=== PATIENT | female | born 1965 | race Asian ===

== ENCOUNTER 2021-02-01 10:08 | Emergency (ER) | payer MEDICAID, OTHER ==
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
--- NOTE | 2021-02-01 12:21 | XRAY Report ---
PROCEDURE: Chest 1 View X-Ray INDICATIONS: Chest pain TECHNIQUE: One view of the chest was acquired. COMPARISON: None FINDINGS: Surgical changes and devices: None. Lungs and pleura: No pleural effusions or pneumothorax. Linear streaky atelectasis in the left lower lobe. No focal consolidation. Mediastinum: Mediastinal contours appear normal. Heart size is normal. Bones and chest wall: No suspicious bony lesions. Overlying soft tissues appear unremarkable. IMPRESSION: No acute cardiopulmonary process demonstrated radiographically. Reviewed by: Pelon Meneses MD on 02/01/2021 12:19 PM PDT Approved by: Pelon Meneses MD on 02/01/2021 12:19 PM PDT Station ID: [id number]
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
--- NOTE | 2021-02-01 12:39 | CT Report ---
PROCEDURE: HEAD WO INDICATIONS: Trauma, worsening headache TECHNIQUE: Noncontrast 4.5 mm thick angled axial sections acquired from the foramen magnum to the vertex. For r adiation dose reduction, the following was used: automated exposure control, adjustment of mA and/or kV according to patient size. COMPARISON: None. FINDINGS: Image quality: Excellent. CSF spaces: Basal cisterns are patent. No extra-axial fluid collections. Ventricles are normal in size and shape. Brain: Suspected small intraparenchymal hemorrhage in the anterior right frontal lobe with adjacent v asogenic edema. There is also likely a small adjacent subarachnoid component. No significant mass eff ect or midline shift. No additional intracranial hemorrhage identified. Skull and face: Calvarium and visualized facial bones are intact, without suspicious lesions. Sinuses: Visualized sinuses and mastoids are clear. IMPRESSION: Suspected small right frontal intraparenchymal hemorrhage with mild adjacent vasogenic edema. Appeara nce is not entirely consistent with intracranial hemorrhage although in the setting of trauma this is most likely. Due to the somewhat atypical appearance, follow up should be obtained to document resol ution, versus an MRI with contrast to further assess. Findings were discussed with Dr. Nelson at 12:2 9 PM on 02/01/2021. Reviewed by: Pelon Meneses MD on 02/01/2021 12:38 PM PDT Approved by: Pelon Meneses MD on 02/01/2021 12:38 PM PDT Station ID: [id number]
[2021-02-01 15:07] LABS: CREATININE 0.6 mg/dL (0.4-1.0); POTASSIUM 4.2 mmol/L (3.5-5.0)
--- NOTE | 2021-02-01 18:04 | CT Report ---
PROCEDURE: HEAD WO INDICATIONS: brain bleed recheck TECHNIQUE: Noncontrast 4.5 mm thick angled axial sections acquired from the foramen magnum to the vertex. For r adiation dose reduction, the following was used: automated exposure control, adjustment of mA and/or kV according to patient size. COMPARISON: None. FINDINGS: Image quality: There is streak artifact seen through the skull base. CSF spaces: Basal cisterns are patent. No extra-axial fluid collections. Ventricles are normal in size and shape. Brain: There is hyperdensity seen involving the anterior aspect of the right frontal lobe, as on ser ies 5 image 15. This is unchanged compared to the prior examination. Associated edema can be seen. No midline shift. Neely-white matter interface is normal. Skull and face: Calvarium and visualized facial bones are intact, without suspicious lesions. Sinuses: Visualized sinuses and mastoids are clear. IMPRESSION: There is stable hypodensity seen involving the anterior aspect of the right frontal lobe, which is no t progressed compared to the prior examination. This may be related to hemorrhage, although different ial diagnosis includes an underlying mass. Please consider a follow-up brain MRI (without and with contrast) for further evaluation (assuming t hat there is no contraindication). Reviewed by: Fran Luis MD on 02/01/2021 5:03 PM MAHESH Approved by: Fran Luis MD on 02/01/2021 5:03 PM MAHESH Station ID: [id number]
[2021-02-01 18:27] VITALS: BP 139/90
== END 2021-02-01 18:27 | disposition home or self-care (01) ==
LOC: ED 10:08
DX: S06.300A Unspecified focal traumatic brain injury without loss of consciousness, initial encounter (principal); S70.02XA Contusion of left hip, initial encounter; V00.848A Other accident with standing micro-mobility pedestrian conveyance, initial encounter; Y92.480 Sidewalk as the place of occurrence of the external cause; Y93.01 Activity, walking, marching and hiking; E87.1 Hypo-osmolality and hyponatremia
CPT/HCPCS: 36415; 80048; 99284; 99285

== ENCOUNTER 2023-10-19 16:44 | Emergency (ER) | payer MEDICAID ==
[2023-10-19 16:59] VITALS: O2SAT 98
--- NOTE | 2023-10-19 16:59 | ED Physician Documentation ---
PD HPI SKIN - Stated complaint Stated Complaint: LT HAND LAC - Chief complaint Chief Complaint: Laceration - Additional information Additional information: 58-year-old female presents emergency department for laceration to the tip of her left ring finger. Bleeding was difficult to control upon initial arrival and eventually controlled with direct pressure and finger tourniquet. She has not any blood thinners. She is unsure if she is up-to-date with her tetanus shot. Denies any numbness or tingling. No other pertinent past medical history. PD PAST MEDICAL HISTORY - Past Medical History Past Medical History: Yes Cardiovascular: Hypertension Respiratory: None Neuro: None Endocrine/Autoimmune: None GI: None AIR HAMMER OPERATOR: None : None HEENT: None Psych: None Musculoskeletal: Other Derm: None - Past Surgical History Past Surgical History: Yes /AIR HAMMER OPERATOR: Breast implants - Present Medications Home Medications: Ambulatory Orders Medication Instructions Recorded Confirmed Lisinopril [Zestril] 2.5 mg PO DAILY 10/19/23 10/19/23 - Allergies Allergies/Adverse Reactions: Allergies Allergy/AdvReac Type Severity Reaction Status Date / Time No Known Drug Allergies Allergy Verified 10/19/23 16:52 - Social History Does the pt smoke?: No Smoking Status: Never smoker Does the pt drink ETOH?: Yes Does the pt have substance abuse?: No - Immunizations Immunizations are current?: No Immunizations: TDAP >10years/unknown - POLST Patient has POLST: No PD ED PE NORMAL - Vitals Vital signs reviewed: Yes - General General: Alert and oriented X 3, No acute distress, Well developed/nourished (Left ring finger. 1.5 cm laceration to the tip of her left finger not involving the nail. Laceration into subcutaneous no bone exposure.) Results - Vitals Vitals: Vital Signs - 24 hr 10/19/23 10/19/23 16:52 17:56 Temperature 36.5 C 36.6 C Heart Rate 74 62 Respiratory 16 16 Rate Blood Pressure 140/100 H 127/80 O2 Saturation 98 98 Oxygen O2 Source Room air Procedures - Laceration (location) left ring finger tip laceration Length in cm: 1.5 (no fingernail involvement) Wound type: Linear, Into subcut fat, Clean Neurovascular status: Sensory intact, Motor intact, Vascular intact Anesthesia: Lidocaine 2% Wound preparation: Irrigated copiously NS, Wound explored, To the base Skin layer closure: Nylon, Interrupted, Size #-0 - enter number (4-0), Sutures - enter # (4) PD Medical Decision Making - ED course ED course: Wound inspected under direct bright light with good visualization. Area with linear laceration across soft tissue through adipose without exposure of muscle belly or tendon. No overt foreign body. Area hemostatic. Neurovascular exam congruent with above. Area extensively irrigated with sterile normal saline under pressure. Laceration repaired in simple fashion (please see procedure note for further details). Patient tolerated procedure well and neurovascular exam intact and unchanged post repair with intact distal pulses and cap refill. Tetanus shot updated here in the emergency department. Cautious return precautions discussed w/ full understanding. Wound care discussed. Prompt follow up with primary care physician discussed and return for suture removal in 8 days. Departure - Departure Disposition: 01 Home, Self Care Clinical Impression: Finger laceration Instructions: Sutr Care, ED Laceration Sure Close Comments: Come back for any signs of infection which would include: Redness, swelling, drainage, increased pain, or fevers. You can wash it soap and water. Keep it covered and moist with bacitracin ointment which is available over the counter; avoid neosporin. Follow-up with your physician in 8 days for suture removal. Forms: PCP List Discharge Date/Time: 10/19/23 18:03
[2023-10-19] MEDS: LIDOCAINE-MPF 2% 5 ML VIAL SUBQ STA (17:17)
[2023-10-19] MEDS: TETANUS/DIPHTHERIA/PERTUSSIS 0.5 ML SYRINGE IM ONE (18:00)
[2023-10-19] MEDS: BACITRACIN ZINC OINT 1 PACKET TOP STA (18:00)
[2023-10-19 18:04] VITALS: BP 127/80
== END 2023-10-19 18:03 | disposition home or self-care (01) ==
LOC: ED 16:44
DX: S61.215A Laceration without foreign body of left ring finger without damage to nail, initial encounter (principal); X58.XXXA Exposure to other specified factors, initial encounter
CPT/HCPCS: 12001; 90471; 90715; 99283; A9270